=== PATIENT | male | born 1970 | race African-American/Black ===

== ENCOUNTER 2017-02-22 15:11 | Emergency (ER) | payer MEDICARE ==
[~2017-02-22] VITALS: Ht 175.3 cm; Wt 72.5 kg
[2017-02-22 18:40] VITALS: BP 132/69
[2017-02-22] MEDS ORDERED: KETOROLAC TROMETHAMINE 30 MG/ML VIAL IM ONE (19:00)
== END 2017-02-22 19:31 | disposition home or self-care (01) ==
LOC: EMS 15:14
DX: M25.552 Pain in left hip (principal); F17.210 Nicotine dependence, cigarettes, uncomplicated; Z96.642 Presence of left artificial hip joint
CPT/HCPCS: 96372; 99283; J1885